=== PATIENT | male | born 1985 | race Caucasian/White ===

== ENCOUNTER 2017-07-27 18:44 | Emergency (ER) | payer BC ==
[~2017-07-27 18:44] MED LIST: ANTI NAUSEA MED PO; IBUP600T26 PO; LORTA5 PO; PROM1SUP12 PR; PROM25SU8 PO; ZYCAM PO
[2017-07-27 18:47] VITALS: BP 145/70; PULSE 62; RESP 14; TEMP 97.9; O2SAT 100
--- NOTE | 2017-07-27 19:20 | RADRPT ---
EXAM DATE/TIME: 07/27/2017 19:07 [facility] COMPARISON: No previous studies available for comparison. INDICATIONS : Cough, congestion MEDICAL HISTORY : None. SURGICAL HISTORY : None. ENCOUNTER: Initial ACUITY: 2 days PAIN SCORE: 4/10 LOCATION: Bilateral chest FINDINGS: PA and lateral views of the chest demonstrate the lungs to be symmetrically aerated without evidence of mass, infiltrate or effusion. The cardiomediastinal contours are unremarkable. Osseous structure s are intact. CONCLUSION: Normal 2 view chest x-ray. Daron oTrres MD on July 27, 2017 at 19:18 Board Certified Radiologist. This report was verified electronically.
[2017-07-27] MEDS ORDERED: SODIUM CHLORIDE 0.9% FLUSH 10 ML FLUSH IV FLUSH PRN (21:15)
[2017-07-27 21:50] LABS: AUTOMATED NEUTROPHIL # 12.9 TH/MM3 (1.8-7.7); BASOPHIL % 0.1 % (0.0-2.0); HEMATOCRIT 49.9 % (39.0-51.0); HEMOGLOBIN 17.3 GM/DL (13.0-17.0); LYMPH % 5.8 % (9.0-44.0); LYMPHOCYTE # 0.8 TH/MM3 (1.0-4.8); MEAN CELL VOLUME 92.1 FL (80.0-100.0); MEAN CORPUSCULAR HEMOGLOBIN 31.9 PG (27.0-34.0); MEAN CORPUSCULAR HGB CONC 34.6 % (32.0-36.0); MEAN PLATELET VOLUME 8.7 FL (7.0-11.0); MONO % 4.3 % (0.0-8.0); MONOCYTE # 0.6 TH/MM3 (0-0.9); NEUT % 89.8 % (16.0-70.0); PLATELET COUNT 292 TH/MM3 (150-450); RED BLOOD COUNT 5.42 MIL/MM3 (4.50-5.90); RED CELL DISTRIBUTION WIDTH 12.7 % (11.6-17.2); WHITE BLOOD COUNT 14.4 TH/MM3 (4.0-11.0)
[2017-07-27 22:00] LABS: ALBUMIN 4.5 GM/DL (3.4-5.0); AST (GOT) 14 U/L (15-37); BICARBONATE 30.1 MEQ/L (21.0-32.0); BLOOD UREA NITROGEN 19 MG/DL (7-18); CALCIUM 9.3 MG/DL (8.5-10.1); CHLORIDE 106 MEQ/L (98-107); CREATININE 1.09 MG/DL (0.60-1.30); GLOMERULAR FILTRATION RATE 78 ML/MIN (>89); GLUCOSE,RANDOM 117 MG/DL (74-106); SODIUM (NA) 141 MEQ/L (136-145)
[2017-07-27] MEDS ORDERED: SODIUM CHLOR 0.9% 1000 ML INJ 1,000 ML IV ONE (22:00)
[2017-07-27 22:03] LABS: ALKALINE PHOSPHATASE 80 U/L (45-117); ALT (GPT) 30 U/L (12-78); TOTAL BILIRUBIN ADULT 1.3 MG/DL (0.2-1.0); TOTAL PROTEIN 7.9 GM/DL (6.4-8.2)
[2017-07-27 22:05] VITALS: BP 140/68; PULSE 82; RESP 18; O2SAT 98
[2017-07-27 22:22] LABS: INTERNATIONAL NORMALIZED RATIO 1.1 RATIO; PROTHROMBIN TIME - PATIENT 10.8 SEC (9.8-11.6)
--- NOTE | 2017-07-27 22:33 | PD ---
HPI Chief Complaint: Cold / Flu Symptoms Time Seen by Provider: 20:47 Travel History International Travel<30 days: No Contact w/Intl Traveler<30days: No Traveled to known affect area: No History of Present Illness HPI Patient is a 32-year-old male presenting to the emergency department for evaluation of cold symptoms. Patient was sent from urgent care after he expressed to them that he was vomiting blood. Patient states that he had an episode of vomiting there and they saw blood and sent him here. Patient reports that the symptoms started last night, he states he was coughing, today he reports vomiting 4 times but denies any significant nausea. He does report that he was sweating a lot last night as well. He denies any headache, shortness of breath, chest pain, abdominal pain, fevers. Patient denies any dark or tarry like stools. He further denies any nausea. Symptom onset was fairly sudden, getting progressively worse throughout the last 24 hours. There are no alleviating factors. There are no exacerbating factors. PFSH Past Medical History Medical History: Denies Significant Hx Diminished Hearing: No Social History Alcohol Use: No Tobacco Use: No Substance Use: Yes (marijuana) Allergies-Medications (Allergen,Severity, Reaction): Coded Allergies: No Known Allergies (Verified Adverse Reaction, Unknown, 07/27/17) Reported Meds & Prescriptions Reported Meds & Active Scripts Active No Active Prescriptions or Reported Medications Review of Systems Except as stated in HPI: all other systems reviewed are Neg General / Constitutional: No: Fever HENT: No: Headaches Cardiovascular: No: Chest Pain or Discomfort Respiratory: Positive: Cough, Hemoptysis Gastrointestinal: Positive: Vomiting, No: Nausea, Abdominal Pain Physical Exam Narrative GENERAL: Well-developed, well-nourished, well-appearing male. Presenting in no acute distress. SKIN: Warm and dry. HEAD: Atraumatic. Normocephalic. EYES: Pupils equal and round. No scleral icterus. No injection or drainage. ENT: No nasal bleeding or discharge. Mucous membranes pink and moist. NECK: Trachea midline. No JVD. CARDIOVASCULAR: Regular rate and rhythm. RESPIRATORY: No accessory muscle use. Clear to auscultation. Breath sounds equal bilaterally. GASTROINTESTINAL: Abdomen soft, non-tender, nondistended. Hepatic and splenic margins not palpable. MUSCULOSKELETAL: Extremities without clubbing, cyanosis, or edema. No obvious deformities. NEUROLOGICAL: Awake and alert. No obvious cranial nerve deficits. Motor grossly within normal limits. Five out of 5 muscle strength in the arms and legs. Normal speech. PSYCHIATRIC: Appropriate mood and affect; insight and judgment normal. Data Data Last Documented VS Vital Signs Date Time Temp Pulse Resp B/P (MAP) Pulse Ox O2 Delivery O2 Flow Rate FiO2 07/27/17 18:47 97.9 62 14 145/70 (95) 100 Orders Orders Chest, Pa & Lat (07/27/17 ) Complete Blood Count With Diff (07/27/17 21:06) Comprehensive Metabolic Panel (07/27/17 21:06) Lipase (07/27/17 21:06) Prothrombin Time / Inr (Pt) (07/27/17 21:06) Act Partial Throm Time (Ptt) (07/27/17 21:06) Iv Access Insert/Monitor (07/27/17 21:06) Ecg Monitoring (07/27/17 21:06) Oximetry (07/27/17 21:06) Sodium Chloride 0.9% Flush (Ns Flush) (07/27/17 21:15) D-Dimer (07/27/17 21:06) Sodium Chlor 0.9% 1000 Ml Inj (Ns 1000 M (07/27/17 22:00) Labs Laboratory Tests Test 07/27/17 21:15 White Blood Count 14.4 TH/MM3 Red Blood Count 5.42 MIL/MM3 Hemoglobin 17.3 GM/DL Hematocrit 49.9 % Mean Corpuscular Volume 92.1 FL Mean Corpuscular Hemoglobin 31.9 PG Mean Corpuscular Hemoglobin Concent 34.6 % Red Cell Distribution Width 12.7 % Platelet Count 292 TH/MM3 Mean Platelet Volume 8.7 FL Neutrophils (%) (Auto) 89.8 % Lymphocytes (%) (Auto) 5.8 % Monocytes (%) (Auto) 4.3 % Eosinophils (%) (Auto) 0.0 % Basophils (%) (Auto) 0.1 % Neutrophils # (Auto) 12.9 TH/MM3 Lymphocytes # (Auto) 0.8 TH/MM3 Monocytes # (Auto) 0.6 TH/MM3 Eosinophils # (Auto) 0.0 TH/MM3 Basophils # (Auto) 0.0 TH/MM3 CBC Comment DIFF FINAL Differential Comment Prothrombin Time 10.8 SEC Prothromb Time International Ratio 1.1 RATIO Activated Partial Thromboplast Time 25.7 SEC D-Dimer Quantitative (PE/DVT) LESS THAN 0.19 MG/L FEU Blood Urea Nitrogen 19 MG/DL Creatinine 1.09 MG/DL Random Glucose 117 MG/DL Total Protein 7.9 GM/DL Albumin 4.5 GM/DL Calcium Level 9.3 MG/DL Alkaline Phosphatase 80 U/L Aspartate Amino Transf (AST/SGOT) 14 U/L Alanine Aminotransferase (ALT/SGPT) 30 U/L Total Bilirubin 1.3 MG/DL Sodium Level 141 MEQ/L Potassium Level 4.0 MEQ/L Chloride Level 106 MEQ/L Carbon Dioxide Level 30.1 MEQ/L Anion Gap 5 MEQ/L Estimat Glomerular Filtration Rate 78 ML/MIN Lipase 74 U/L MDM Medical Decision Making Medical Screen Exam Complete: Yes Emergency Medical Condition: Yes Interpretation(s) Last Impressions Chest X-Ray 07/27/17 0000 Signed Impressions: Service Date/Time: July 19:07 - CONCLUSION: Normal 2 view chest x-ray. Daron Torres MD Laboratory Tests Test 07/27/17 21:15 White Blood Count 14.4 TH/MM3 Red Blood Count 5.42 MIL/MM3 Hemoglobin 17.3 GM/DL Hematocrit 49.9 % Mean Corpuscular Volume 92.1 FL Mean Corpuscular Hemoglobin 31.9 PG Mean Corpuscular Hemoglobin Concent 34.6 % Red Cell Distribution Width 12.7 % Platelet Count 292 TH/MM3 Mean Platelet Volume 8.7 FL Neutrophils (%) (Auto) 89.8 % Lymphocytes (%) (Auto) 5.8 % Monocytes (%) (Auto) 4.3 % Eosinophils (%) (Auto) 0.0 % Basophils (%) (Auto) 0.1 % Neutrophils # (Auto) 12.9 TH/MM3 Lymphocytes # (Auto) 0.8 TH/MM3 Monocytes # (Auto) 0.6 TH/MM3 Eosinophils # (Auto) 0.0 TH/MM3 Basophils # (Auto) 0.0 TH/MM3 CBC Comment DIFF FINAL Differential Comment Prothrombin Time 10.8 SEC Prothromb Time International Ratio 1.1 RATIO Activated Partial Thromboplast Time 25.7 SEC D-Dimer Quantitative (PE/DVT) LESS THAN 0.19 MG/L FEU Blood Urea Nitrogen 19 MG/DL Creatinine 1.09 MG/DL Random Glucose 117 MG/DL Total Protein 7.9 GM/DL Albumin 4.5 GM/DL Calcium Level 9.3 MG/DL Alkaline Phosphatase 80 U/L Aspartate Amino Transf (AST/SGOT) 14 U/L Alanine Aminotransferase (ALT/SGPT) 30 U/L Total Bilirubin 1.3 MG/DL Sodium Level 141 MEQ/L Potassium Level 4.0 MEQ/L Chloride Level 106 MEQ/L Carbon Dioxide Level 30.1 MEQ/L Anion Gap 5 MEQ/L Estimat Glomerular Filtration Rate 78 ML/MIN Lipase 74 U/L Vital Signs Date Time Temp Pulse Resp B/P (MAP) Pulse Ox O2 Delivery O2 Flow Rate FiO2 07/27/17 18:47 97.9 62 14 145/70 (95) 100 Differential Diagnosis GI bleed versus viral syndrome versus gastroenteritis versus metabolic abnormality versus coagulopathy versus other Narrative Course Patient is a 32-year-old male that presented to the emergency department in essence to rule out a pulmonary embolism. Patient is very well-appearing, his vital signs are stable. Labs and imaging ordered and pending. Rectal exam is unremarkable, there was no blood noted in stool. CBC with white blood cell count 14.9 likely elevated secondary to vomiting Chemistry with no acute findings, coags are unremarkable, d-dimer is negative. Chest x-ray shows no acute disease. Patient will be discharged home, symptoms seem viral in nature, patient's vital signs are stable. He appears well, he is encouraged to follow-up with a primary doctor or return to the emergency department for any new or worsening symptoms. He is encouraged to maintain adequate fluid intake and continue symptom management. Patient verbalized understanding of instructions. Patient stable for discharge. HemaPrompt Point of Care Fecal Specimen Occult Blood: Negative Diagnosis Primary Impression: Viral syndrome Referrals: Primary Care Physician Patient Instructions: General Instructions, Viral Syndrome (DC) Additional Instructions: Follow-up with your primary doctor Continue symptom management Return to emergency department for any new or worsening symptoms Med/Other Pt SpecificInfo: Prescription(s) given Scripts Ondansetron Odt (Zofran Odt) 4 Mg Tab 4 MG SL Q6HR Y for Nausea/Vomiting, #10 TAB 0 Refills Prov: Sadaf Han 07/27/17 Benzonatate (Tessalon Perles) 100 Mg Cap 100 MG PO TID Y for COUGH, #15 CAP 0 Refills Prov: Sadaf Han 07/27/17 Disposition: 01 DISCHARGE HOME Condition: Stable Sadaf Han Jul 27, 2017 22:33
[2017-07-27 22:36] LABS: D-DIMER LESS THAN 0.19 MG/L FEU (0.00-0.50)
[2017-07-27] MEDS ORDERED: ZOFR4TAB3 SL (22:58)
[2017-07-27] MEDS ORDERED: BENZ100 PO (22:58)
== END 2017-07-28 01:11 | disposition home or self-care (01) ==
LOC: NEPD 18:44
DX: B34.9 Viral infection, unspecified (principal)
CPT/HCPCS: 71046; 80053; 83690; 85025; 85379; 85610; 85730; 99284; J7030

== ENCOUNTER 2017-10-09 06:51 | Observation (INO) | payer BC ==
[2017-10-09] VITALS (12 sets, daily range): BP systolic 110–167; BP diastolic 62–96; PULSE 59–89; RESP 14–18; TEMP 97.8–98.6; O2SAT 96–100
[~2017-10-09] VITALS: Ht 177.8 cm; Wt 82.5 kg
[~2017-10-09 06:51] MED LIST changes: -ANTI NAUSEA MED PO; +BENZ100 PO; -IBUP600T26 PO; -LORTA5 PO; -PROM1SUP12 PR; -PROM25SU8 PO; +ZOFR4TAB3 SL; -ZYCAM PO
[2017-10-09] MEDS ORDERED: SODIUM CHLORIDE 0.9% FLUSH 10 ML FLUSH IVF PRN (07:15)
[2017-10-09] MEDS ORDERED: LORazepam 2 MG/ML VIAL IVS PRN (07:15)
[2017-10-09 07:36] LABS: AUTOMATED NEUTROPHIL # 5.6 TH/MM3 (1.8-7.7); BASOPHIL # 0.1 TH/MM3 (0-0.2); BASOPHIL % 0.7 % (0.0-2.0); EOSINOPHIL # 0.1 TH/MM3 (0-0.4); EOSINOPHIL % 1.4 % (0.0-4.0); HEMATOCRIT 49.5 % (39.0-51.0); HEMOGLOBIN 16.8 GM/DL (13.0-17.0); LYMPH % 25.6 % (9.0-44.0); LYMPHOCYTE # 2.2 TH/MM3 (1.0-4.8); MEAN CELL VOLUME 92.2 FL (80.0-100.0); MEAN CORPUSCULAR HEMOGLOBIN 31.3 PG (27.0-34.0); MEAN PLATELET VOLUME 8.5 FL (7.0-11.0); MONO % 6.7 % (0.0-8.0); MONOCYTE # 0.6 TH/MM3 (0-0.9); NEUT % 65.6 % (16.0-70.0); PLATELET COUNT 269 TH/MM3 (150-450); RED BLOOD COUNT 5.37 MIL/MM3 (4.50-5.90); RED CELL DISTRIBUTION WIDTH 12.6 % (11.6-17.2); WHITE BLOOD COUNT 8.5 TH/MM3 (4.0-11.0)
[2017-10-09 07:45] LABS: AST (GOT) 18 U/L (15-37); BICARBONATE 24.6 MEQ/L (21.0-32.0); BLOOD UREA NITROGEN 15 MG/DL (7-18); CALCIUM 8.8 MG/DL (8.5-10.1); CHLORIDE 108 MEQ/L (98-107); GLOMERULAR FILTRATION RATE 64 ML/MIN (>89); GLUCOSE,RANDOM 156 MG/DL (74-106); SODIUM (NA) 142 MEQ/L (136-145)
[2017-10-09 07:49] LABS: ALKALINE PHOSPHATASE 68 U/L (45-117); ALT (GPT) 29 U/L (12-78); TOTAL BILIRUBIN ADULT 0.4 MG/DL (0.2-1.0); TOTAL PROTEIN 7.2 GM/DL (6.4-8.2)
--- NOTE | 2017-10-09 07:52 | PD ---
HPI . Seizure Chief Complaint: Seizure Time Seen by Provider: 07:05 Travel History International Travel<30 days: No Contact w/Intl Traveler<30days: No Traveled to known affect area: No History of Present Illness HPI Patient presents to us with a chief complaint of seizure. It was witnessed by his who is not here but is available by telephone and text messaging. The patient was in the bed when he had a grand mall type seizure. Duration was about 5 minutes. Onset was about 6 AM. It was followed by a short postictal phase. He did not suffer any injury as the result of the seizure such as shoulder injury, tongue laceration. There was no incontinence. He reports a previous similar event in July. He was seen at an OSH and had a negative workup. He was seen in follow-up by the [facility]. Apparently, there was no focus for the seizure and he was not started on any medications. He had done well since that time until this morning. He does state that he had a bad night last night. He states that he felt hot all night long. The cause of the seizures is unknown. The patient has no idea what could have set it off this morning. [facility] Past Medical History Diminished Hearing: No Social History Alcohol Use: No Tobacco Use: No Substance Use: Yes (marijuana) Allergies-Medications (Allergen,Severity, Reaction): Coded Allergies: No Known Allergies (Verified Adverse Reaction, Unknown, 10/09/17) Reported Meds & Prescriptions Reported Meds & Active Scripts Active Zofran Odt (Ondansetron Odt) 4 Mg Tab 4 Mg SL Q6HR PRN Tessalon Perles (Benzonatate) 100 Mg Cap 100 Mg PO TID PRN Review of Systems Except as stated in HPI: all other systems reviewed are Neg Physical Exam Narrative GENERAL: Currently awake and alert. SKIN: warm/dry. HEAD: Normocephalic. Atraumatic. EYES: Pupils equal and round. No scleral icterus. No injection or drainage. ENT: No nasal bleeding or discharge. Mucous membranes pink and moist. NECK: Trachea midline. Full range of motion without pain.. CARDIOVASCULAR: Regular rate and rhythm. RESPIRATORY: No accessory muscle use. Clear to auscultation. Breath sounds equal bilaterally. MUSCULOSKELETAL: No obvious deformities. NEUROLOGICAL: Awake and alert. No obvious cranial nerve deficits. Motor grossly within normal limits. [id number] exam is intact. Normal speech. PSYCHIATRIC: Appropriate mood and affect; insight and judgment normal. Data Data Last Documented VS Vital Signs Date Time Temp Pulse Resp B/P (MAP) Pulse Ox O2 Delivery O2 Flow Rate FiO2 10/09/17 07:15 67 17 113/69 (84) 97 Room Air 10/09/17 06:55 98.1 Orders Orders Complete Blood Count With Diff (10/09/17 07:05) Drug Screen, Random Urine (10/09/17 07:05) Ct Brain W/O Iv Contrast(Rout) (10/09/17 ) Blood Glucose (10/09/17 07:05) Ecg Monitoring (10/09/17 07:05) Iv Access Insert/Monitor (10/09/17 07:05) Oximetry (10/09/17 07:05) Comprehensive Metabolic Panel (10/09/17 07:05) Sodium Chloride 0.9% Flush (Ns Flush) (10/09/17 07:15) Lorazepam Inj (Ativan Inj) (10/09/17 07:15) Electrocardiogram (10/09/17 ) Levetiracetam Inj (Keppra Inj) (10/09/17 09:30) Labs Laboratory Tests Test 10/09/17 07:20 White Blood Count 8.5 TH/MM3 Red Blood Count 5.37 MIL/MM3 Hemoglobin 16.8 GM/DL Hematocrit 49.5 % Mean Corpuscular Volume 92.2 FL Mean Corpuscular Hemoglobin 31.3 PG Mean Corpuscular Hemoglobin Concent 34.0 % Red Cell Distribution Width 12.6 % Platelet Count 269 TH/MM3 Mean Platelet Volume 8.5 FL Neutrophils (%) (Auto) 65.6 % Lymphocytes (%) (Auto) 25.6 % Monocytes (%) (Auto) 6.7 % Eosinophils (%) (Auto) 1.4 % Basophils (%) (Auto) 0.7 % Neutrophils # (Auto) 5.6 TH/MM3 Lymphocytes # (Auto) 2.2 TH/MM3 Monocytes # (Auto) 0.6 TH/MM3 Eosinophils # (Auto) 0.1 TH/MM3 Basophils # (Auto) 0.1 TH/MM3 CBC Comment DIFF FINAL Differential Comment Blood Urea Nitrogen 15 MG/DL Creatinine 1.30 MG/DL Random Glucose 156 MG/DL Total Protein 7.2 GM/DL Albumin 4.0 GM/DL Calcium Level 8.8 MG/DL Alkaline Phosphatase 68 U/L Aspartate Amino Transf (AST/SGOT) 18 U/L Alanine Aminotransferase (ALT/SGPT) 29 U/L Total Bilirubin 0.4 MG/DL Sodium Level 142 MEQ/L Potassium Level 3.7 MEQ/L Chloride Level 108 MEQ/L Carbon Dioxide Level 24.6 MEQ/L Anion Gap 9 MEQ/L Estimat Glomerular Filtration Rate 64 ML/MIN MDM Medical Decision Making Medical Screen Exam Complete: Yes Emergency Medical Condition: Yes Interpretation(s) EKG showed a normal sinus rhythm with no acute ischemic change. Differential Diagnosis Differential diagnosis of seizure includes but is not limited to epilepsy, electrolyte abnormality, previous stroke, closed head injury Narrative Course Patient presents to us status post a seizure. This is his second seizure. Workup at that time was negative. This patient had a second seizure here in the emergency department. It was a generalized tonic-clonic seizure which lasted about 2-3 minutes. It was treated with Ativan. Because of the second seizure, I will load him with Keppra. CBC & BMP Diagram 10/09/17 07:20 Total Protein 7.2, Albumin 4.0, Calcium Level 8.8, Alkaline Phosphatase 68, Aspartate Amino Transf (AST/SGOT) 18, Alanine Aminotransferase (ALT/SGPT) 29, Total Bilirubin 0.[address] 10/09/17 0000 Signed Impressions: Service Date/Time: Monday, October 09, 2017 07:54 - CONCLUSION: No acute disease. Brice Callahan MD The patient will be admitted here for further evaluation and treatment. Physician Communication Physician Communication Dr. Carr Diagnosis Primary Impression: Seizure Admitting Information Admitting Physician Requests: Admit Condition: Stable Nikky Loco MD Oct 09, 2017 07:52
--- NOTE | 2017-10-09 08:38 | RADRPT ---
EXAM DATE/TIME: 10/09/2017 07:54 [facility] COMPARISON: No previous studies available for comparison. INDICATIONS : Seizure RADIATION DOSE: 38.23 CTDIvol (mGy) MEDICAL HISTORY : None SURGICAL HISTORY : None. ENCOUNTER: Initial ACUITY: 1 day PAIN SCALE: 1/10 LOCATION: cranial TECHNIQUE: Multiple contiguous axial images were obtained of the head. Using automated exposure control and adj ustment of the mA and/or kV according to patient size, radiation dose was kept as low as reasonably a chievable to obtain optimal diagnostic quality images. DICOM format image data is available electro nically for review and comparison. FINDINGS: CEREBRUM: The ventricles are normal for age. No evidence of midline shift, mass lesion, hemorrhage or acute in farction. No extra-axial fluid collections are seen. POSTERIOR FOSSA: The cerebellum and brainstem are intact. The 4th ventricle is midline. The cerebellopontine angle i s unremarkable. EXTRACRANIAL: The visualized portion of the orbits is intact. SKULL: The calvaria is intact. No evidence of skull fracture. CONCLUSION: No acute disease. Brice Callahan MD on October 09, 2017 at 8:35 Board Certified Radiologist. This report was verified electronically.
[2017-10-09] MEDS ORDERED: levETIRAcetam INJ 100 ML IV ONE (09:30)
[2017-10-09] MEDS ORDERED: GADODIAMIDE PF 287 MG/ML 20 ML VIAL (for RAD MRI) IV PUSH ONE (09:57)
--- NOTE | 2017-10-09 10:18 | HHI.HP ---
HPI Service Family Medicine Primary Care Physician No Primary Care Physician Admission Diagnosis sz Diagnoses: International Travel<30 Days: No Contact w/Intl Traveler<30days: No Known Affected Area: No History of Present Illness Patient is a 32 y/o M presenting w/seizure activity. One month ago, patient had seizure while sleeping. Was admitted to [facility] in [facility] and work up was performed, was negative. Followed up w/ [facility]. MRI, EEG was performed, work-up so far has showed no abnormalities. Does not take any medications. This morning, at 6 am, had seizure described as moving his whole body while in bed and grunting, in the middle of sleep. Total episode lasted 10 minutes but appeared to have 3-4 seizures in a row w/consciousness occurring in between, got up and "acted like he was drunk," was off balance. Did not fall. Went into the wrong bathroom that was under construction (house is being rennovated), directed him to the right place. described him a slurring speech, not understandable. No hallucinations, no urinary incontinence. Vomited 1x after seizure. Was fuzzy and confused afterwards. Since then, has vomited 4-5 times w/ appearance of clear liquid. Last meal was 6:30 pm yesterday evening. Had second seizure in the ED at around 9 am, lasted 2-3 minutes. Ativan was given, and activity ended. Patient has been sleepy since then. Drinks once every 6 months. Smokes weed every day, 2-3 joints/day. Last joint was yesterday. No recent fevers, no headaches, no weight loss, no appetite change, no sudden lifestyle changes, no issues w/sleep other than snoring. No family hx of seizures or cancers. (Rhina Carr MD R1) Review of Systems Constitutional: DENIES: Weight loss, Change in appetite Endocrine: DENIES: Polyuria Eyes: DENIES: Blurred vision, Vision loss Ears, nose, mouth, throat: DENIES: Throat pain, Running Nose Respiratory: DENIES: Cough, Shortness of breath Cardiovascular: DENIES: Chest pain Gastrointestinal: DENIES: Constipation, Diarrhea Genitourinary: DENIES: Urinary frequency, Urgency Musculoskeletal: DENIES: Joint pain, Muscle aches Integumentary: DENIES: Abnormal pigmentation Hematologic/lymphatic: DENIES: Bruising Immunologic/allergic: DENIES: Eczema Neurologic: COMPLAINS OF: Paresthesias (Fingers on left side, occasional ) Psychiatric: DENIES: Mood changes, Suicidal Ideation, Homicidal Ideation (Rhina Carr MD R1) Past Family Social History Past Medical History None Past Surgical History Surgery on finger 2 years ago (Rhina Carr MD R1) Allergies: Coded Allergies: No Known Allergies (Verified Adverse Reaction, Unknown, 10/09/17) Family History Mom: no seizure or cancer hx Dad: no seizure or cancer hx Social History Lives in a house in [place] w/ and daughter and dog No smoking or drinking No other drugs beside daily marijuana use, not known where he is obtaining it, possibly street (Rhina Carr MD R1) Physical Exam Vital Signs Vital Signs Date Time Temp Pulse Resp B/P (MAP) Pulse Ox O2 Delivery O2 Flow Rate FiO2 10/09/17 07:15 67 17 113/69 (84) 97 Room Air 10/09/17 07:15 97 Room Air 10/09/17 06:55 98.1 75 15 115/69 (84) 99 Physical Exam GENERAL: This is a well-nourished patient appearing very lethargic and sleepy lying in a pool of sweat. SKIN: Cool and dry. No new lesions, bruising. HEAD: Atraumatic. Normocephalic. No temporal or scalp tenderness. EYES: Pupils equal round and reactive. No scleral icterus. ENT: Nose without bleeding, purulent drainage or septal hematoma. Unable to open mouth for exam, but tongue has no lacerations, mucous membranes moist. NECK: Trachea midline. Supple, nontender, no meningeal signs. CARDIOVASCULAR: Regular rate and rhythm without murmurs, gallops, or rubs. RESPIRATORY: Clear to auscultation. Breath sounds equal bilaterally. No wheezes , rales, or rhonchi. GASTROINTESTINAL: Abdomen soft, non-tender, nondistended. No hepato-splenomegaly , or palpable masses. No guarding. MUSCULOSKELETAL: Extremities without clubbing, cyanosis, or edema. NEUROLOGICAL: Alert to self, year, and place. Patient unable to perform tasks for neuro exam. Opens eyes occasionally during exam. 4/5 muscle strength in all muscle groups. Patellar and triceps intact. Minimal speech. Laboratory Laboratory Tests Test 10/09/17 07:20 White Blood Count 8.5 Red Blood Count 5.37 Hemoglobin 16.8 Hematocrit 49.5 Mean Corpuscular Volume 92.2 Mean Corpuscular Hemoglobin 31.3 Mean Corpuscular Hemoglobin Concent 34.0 Red Cell Distribution Width 12.6 Platelet Count 269 Mean Platelet Volume 8.5 Neutrophils (%) (Auto) 65.6 Lymphocytes (%) (Auto) 25.6 Monocytes (%) (Auto) 6.7 Eosinophils (%) (Auto) 1.4 Basophils (%) (Auto) 0.7 Neutrophils # (Auto) 5.6 Lymphocytes # (Auto) 2.2 Monocytes # (Auto) 0.6 Eosinophils # (Auto) 0.1 Basophils # (Auto) 0.1 CBC Comment DIFF FINAL Differential Comment Blood Urea Nitrogen 15 Creatinine 1.30 Random Glucose 156 Total Protein 7.2 Albumin 4.0 Calcium Level 8.8 Alkaline Phosphatase 68 Aspartate Amino Transf (AST/SGOT) 18 Alanine Aminotransferase (ALT/SGPT) 29 Total Bilirubin 0.4 Sodium Level 142 Potassium Level 3.7 Chloride Level 108 Carbon Dioxide Level 24.6 Anion Gap 9 Estimat Glomerular Filtration Rate 64 (Rhina Carr MD R1) Result Diagram: 10/09/17 0720 10/09/17 0720 Imaging Last Impressions Head CT 10/09/17 0000 Signed Impressions: Service Date/Time: Monday, October 09, 2017 07:54 - CONCLUSION: No acute disease. Brice Callahan MD (Rhina Carr MD R1) Capbrocki VTE Risk Assessment Caprini VTE Risk Assessment: No/Low Risk (score <= 1) Caprini Risk Assessment Model Point Value = 1 Point Value = 2 Point Value = 3 Point Value = 5 Age 41-60 Minor surgery BMI > 25 kg/m2 Swollen legs Varicose veins or History of unexplained or recurrent spontaneous Oral contraceptives or hormone replacement Sepsis (< 1 month) Serious lung disease, including pneumonia (< 1 month) Abnormal pulmonary function Acute myocardial infarction Congestive heart failure (< 1 month) History of inflammatory bowel disease Medical patient at bed rest Age 61-74 Arthroscopic surgery Major open surgery (> 45 min) Laparoscopic surgery (> 45 min) Malignancy Confined to bed (> 72 hours) Immobilizing plaster cast Central venous access Age >= 75 History of VTE Family history of VTE Factor V Leiden Prothrombin [id number] Lupus anticoagulant Anticardiolipin antibodies Elevated serum homocysteine Heparin-induced thrombocytopenia Other congenital or acquired thrombophilia Stroke (< 1 month) Elective arthroplasty Hip, pelvis, or leg fracture Acute spinal cord injury (< 1 month) Prophylaxis Regimen Total Risk Factor Score Risk Level Prophylaxis Regimen 0-1 Low Early ambulation 2 Moderate Order ONE of the following: *Sequential Compression Device (SCD) *Heparin 5000 units SQ BID 3-4 Higher Order ONE of the following medications: *Heparin 5000 units SQ TID *Enoxaparin/Lovenox 40 mg SQ daily (WT < 150 kg, CrCl > 30 mL/min) *Enoxaparin/Lovenox 30 mg SQ daily (WT < 150 kg, CrCl > 10-29 mL/min) *Enoxaparin/Lovenox 30 mg SQ BID (WT < 150 kg, CrCl > 30 mL/min) AND/OR *Sequential Compression Device (SCD) 5 or more Highest Order ONE of the following medications: *Heparin 5000 units SQ TID (Preferred with Epidurals) *Enoxaparin/Lovenox 40 mg SQ daily (WT < 150 kg, CrCl > 30 mL/min) *Enoxaparin/Lovenox 30 mg SQ daily (WT < 150 kg, CrCl > 10-29 mL/min) *Enoxaparin/Lovenox 30 mg SQ BID (WT < 150 kg, CrCl > 30 mL/min) AND *Sequential Compression Device (SCD) (Rhina Carr MD R1) Assessment and Plan Assessment and Plan 32 y/o M admitted for observation following seizure activity. Patient is currently stable and post-ictal. Will monitor overnight, continue Keppra ( started in the ED), and consult neurology. Code Status FULL (Rhina Carr MD R1) Attending Attestation Patient seen and examined. Discussed with Dr. Carr. Agree with physical findings , assessment and plan as documented. (Prevatte,Thor Chappell Jr., MD) Problem List: (1) Seizure ICD Codes: R56.9 - Unspecified convulsions Status: Acute Plan: Has had previous work-ups involving MRI and EEG Follows with neurology outpatient, not taking medication Neuro consult Keppra 500 BID Ativan 2 mg IV q15 min PRN for seizure activity, max 2 doses ETOH level and UDS Mg level, TSH level Bed rest ECG pending NPO Seizure and fall precautions cardio monitor (2) FEN Plan: Fluid: None Electrolytes: not indicated Nutrition: Diet may be started after clinical improvement. Recommend PO intake after no seizure activity for 12 hrs (Rhina Carr MD R1) Physician Certification 2 Midnight Certification Type: Continued Stay Order for Inpatient Services The services are ordered in accordance with Medicare regulations or non- Medicare payer requirements, as applicable. In the case of services not specified as inpatient-only, they are appropriately provided as inpatient services in accordance with the 2-midnight benchmark. Estimated LOS (days): 2 2 days is the estimated time the patient will need to remain in the hospital, assuming treatment plan goals are met and no additional complications. Post-Hospital Plan: Home (Rhina Carr MD R1) Rhina Carr MD R1 Oct 09, 2017 10:18 Thor Meadows Jr., MD Oct 09, 2017 21:08
[2017-10-09] MEDS ORDERED: SODIUM CHLORIDE 0.9% FLUSH 10 ML FLUSH IV FLUSH PRN (10:30)
[2017-10-09] MEDS ORDERED: MAGNESIUM HYDROXIDE SUSP 30 ML CUP PO PRN (10:30)
[2017-10-09] MEDS ORDERED: LORazepam 2 MG/ML VIAL IV PUSH PRN (10:30)
[2017-10-09] MEDS ORDERED: IBUPROFEN 600 MG TAB PO PRN (10:30)
[2017-10-09] MEDS ORDERED: SENNOSIDES 8.6 MG TAB PO PRN (10:30)
[2017-10-09] MEDS ORDERED: NALOXONE HCL 0.4 MG/ML AMP IV PUSH PRN (10:30)
[2017-10-09] MEDS ORDERED: ONDANSETRON ODT 4 MG TAB PO PRN (18:00)
--- NOTE | 2017-10-09 18:07 | MB ---
cc: Mohsen Liriano MD, PhD DATE: 10/09/2017 REASON FOR CONSULTATION: Recurrent seizure. HISTORY OF PRESENT ILLNESS: Mr. Stewart is a 32-year-old man who, yesterday, had a generalized seizure in the morning. His noted that he was unresponsive with generalized jerking activity, afterwards was somnolent. He was brought to the emergency room, had a second episode here in the ER. Had his first episode last July. MRI, EEG were negative. He was not placed on any seizure medications. PAST MEDICAL HISTORY: Otherwise unremarkable. ALLERGIES: NONE KNOWN. MEDICATIONS AT HOME: NONE. SOCIAL HISTORY: Denies alcohol use. He does use marijuana daily. No other drug abuse. NEUROLOGICAL EXAMINATION: VITAL SIGNS: His blood pressure is 110/62, pulse 59, respiratory rate is 14, temperature 97 degrees. HIGHER CORTICAL FUNCTIONS: Intact. CRANIAL NERVES: Normal. MOTOR: No focal deficit noted. DIAGNOSTIC DATA: CT of the brain is normal. LABORATORY DATA: White count 8500, hemoglobin 16.8, hematocrit 49.8%, platelet count 269,000. Sodium 142, potassium 3.7, chloride 108, CO2 of 24.6, BUN is 15, creatinine 1.3, GFR 54, glucose 156, AST of 18, ALT is 29. TSH 1.62. Alcohol less than 3. IMPRESSION: Recurrent generalized seizure. RECOMMENDATION: We will repeat the MRI of the brain. Also check EEG. We will start the patient on Keppra. He should not drive for at least 6 months being seizure free. Mohsen Liriano MD, PhD PENNY/SB , 04:15 PM , 06:06 PM
[2017-10-09] MEDS: levETIRAcetam 500 MG TAB PO SCH (21:15)
[2017-10-09] MEDS: SODIUM CHLORIDE 0.9% FLUSH 10 ML FLUSH IV FLUSH SCH (21:16)
[2017-10-09] MEDS ORDERED: ONDANSETRON HCL 4 MG/2 ML VIAL IV PUSH PRN (22:00)
[2017-10-10 00:01] VITALS: PULSE 65
--- NOTE | 2017-10-10 00:03 | EKG ---
Date Performed: 10/09/2017 Time Performed: 07:18:13 PTAGE: 32 years EKG: SINUS BRADYCARDIA BORDERLINE ECG NO PREVIOUS TRACING DOCTOR: Damián Hernandez Interpretating Date/Time 10/10/2017 00:02:37
[2017-10-10 04:02] VITALS: PULSE 63
[2017-10-10 04:16] VITALS: BP 108/62; PULSE 62; RESP 18; TEMP 98.3; O2SAT 97
[2017-10-10 07:19] LABS: ALT (GPT) 26 U/L (12-78)
[2017-10-10 07:21] LABS: ALKALINE PHOSPHATASE 68 U/L (45-117); TOTAL BILIRUBIN ADULT 0.9 MG/DL (0.2-1.0); TOTAL PROTEIN 6.9 GM/DL (6.4-8.2)
[2017-10-10 07:24] LABS: ALBUMIN 3.6 GM/DL (3.4-5.0); AST (GOT) 23 U/L (15-37); BICARBONATE 22.1 MEQ/L (21.0-32.0); BLOOD UREA NITROGEN 14 MG/DL (7-18); CALCIUM 8.8 MG/DL (8.5-10.1); CHLORIDE 110 MEQ/L (98-107); CREATININE 1.06 MG/DL (0.60-1.30); GLOMERULAR FILTRATION RATE 80 ML/MIN (>89); GLUCOSE,RANDOM 81 MG/DL (74-106); SODIUM (NA) 141 MEQ/L (136-145)
[2017-10-10] MEDS: SODIUM CHLORIDE 0.9% FLUSH 10 ML FLUSH IV FLUSH SCH (07:32)
[2017-10-10] MEDS: levETIRAcetam 500 MG TAB PO SCH (07:32)
[2017-10-10 07:47] VITALS: BP 118/78; PULSE 74; RESP 18; TEMP 97.6; O2SAT 95
[2017-10-10] MEDS ORDERED: SODIUM CHLOR 0.9% 1000 ML INJ 1,000 ML IV SCH (08:00)
[2017-10-10] MEDS ORDERED: SODIUM CHLOR 0.9% 1000 ML INJ 1,000 ML IV ONE (09:00)
[2017-10-10] MEDS ORDERED: levETIRAcetam 500 MG TAB PO SCH (09:00)
--- NOTE | 2017-10-10 09:14 | RADRPT ---
EXAM DATE/TIME: 10/10/2017 08:26 [place] COMPARISON: CT BRAIN W/O CONTRAST, October 09, 2017, 7:54. INDICATIONS : Seizures. CONTRAST: 17 cc Omniscan (gadodiamide) IV MEDICAL HISTORY : Seizures. SURGICAL HISTORY : Left ring finger sx. ENCOUNTER: Initial ACUITY: 1 day PAIN SCORE: 3/10 LOCATION: Bilateral cranial TECHNIQUE: Multiplanar, multisequence MRI of the brain was performed both prior to and following the administrat ion of paramagnetic contrast. FINDINGS: CEREBRUM: The ventricles are normal for age. No evidence of midline shift, mass lesion, hemorrhage or acute in farction. No extraaxial fluid collections are seen. The pituitary gland and suprasellar cistern are normal in configuration. WHITE MATTER: No significant signal abnormalities are seen in the white matter. POSTERIOR FOSSA: The cerebellum and brainstem are intact. The 4th ventricle is midline. The cerebellopontine angle is unremarkable. The cerebellar tonsils are normal in position. DIFFUSION IMAGING: No focal areas of restricted diffusion are seen. No evidence of acute infarction. EXTRACRANIAL: The visualized portions of the orbits and paranasal sinuses are unremarkable. POST-CONTRAST: No abnormal areas of parenchymal or dural enhancement. No evidence of blood-brain barrier breakdown. CONCLUSION: Brain MRI within normal limits. Fred Cabral MD on October 10, 2017 at 9:07 Board Certified Radiologist. This report was verified electronically.
--- NOTE | 2017-10-10 10:32 | HHI.FPPN ---
Subjective Remarks Vitals were stable overnight. Patient states he had no problems overnight, other than nausea. Had nausea yesterday evening and unsteady gait pattern was noted yesterday. Patient required 1 person assist and then standby. Due to his extreme nausea, MRI was delayed for this morning. Patient was placed on PRN Zofran last night, took it once around 10 PM. No abnormalities were noted on cardiac telemetry. Patient states that his nausea is much improved since yesterday, states that he only vomited once this morning. Was able to take 10 mL's of liquid this morning. No other problems or complaints. No vision changes. Patient states that he feels well. Asked about his marijuana use this morning. Patient states that he has been smoking daily for 15 years, is hesitant to give up habit. Objective Vitals Vital Signs Date Time Temp Pulse Resp B/P (MAP) Pulse Ox O2 Delivery O2 Flow Rate FiO2 10/10/17 07:47 97.6 74 18 118/78 (91) 95 10/10/17 04:16 98.3 62 18 108/62 (77) 97 10/10/17 04:02 63 10/10/17 00:01 65 10/09/17 23:55 98.2 67 18 111/68 (82) 96 10/09/17 21:48 59 10/09/17 20:26 96 21 10/09/17 19:22 98.4 72 18 129/64 (85) 96 10/09/17 17:40 98.1 60 16 167/96 (119) 98 10/09/17 16:29 98.6 72 16 132/62 (85) 96 10/09/17 15:35 60 10/09/17 12:54 97.8 59 14 110/62 (78) 96 10/09/17 12:23 89 16 138/72 (94) 100 Room Air 10/09/17 10:10 88 17 117/76 (90) 100 Room Air I/O 10/09/17 10/09/17 10/09/17 10/10/17 10/10/17 10/10/17 07:00 15:00 23:00 07:00 15:00 23:00 Intake Total 100 ml 350 ml 10 ml Balance 100 ml 350 ml 10 ml Intake Oral 350 ml 10 ml IV Total 100 ml # Voids 1 Result Diagram: 10/09/17 0720 10/10/17 0540 Objective Remarks O. CONSTITUTIONAL/GEN: normally nourished, in NAD. EYES: conjunctiva normal, EOMI. ENT: Mucous membranes slightly dry. NECK: Supple, no pain. LUNGS: clear A-P, respiratory effort is normal. CARDIOVASCULAR: RR without murmur or gallop. No significant edema. GI/ABD: soft without masses, without organomegaly. NEURO: No focal deficits. Normal range of motion. 5/5 motor strength in all extremities. Sensation intact bilaterally. Patellar and biceps reflexes intact. Hand-eye coordination normal. SKIN: color normal PSYCH/MENTAL STATUS: Alert, good judgement and insight. A/P Assessment and Plan 32 y/o M admitted for observation following seizure activity. Patient is currently stable and post-ictal. Monitored overnight and on Keppra (started in the ED). Neurology consulted. Discharge Planning Likely today; pending EEG results, neuro recommendations, and PT assessment. Problem List: (1) Seizure ICD Codes: R56.9 - Unspecified convulsions Status: Acute Plan: Has had previous work-ups involving MRI and EEG Follows with neurology outpatient, not taking medication Electrolytes within normal limits, EKG without abnormalities No seizure activity for more than 12 hours since admission Unsteady gait noted post-ictally and overnight UDS positive for cannabinoids Neuro consulted, appreciate recommendations Continue Keppra 500 BID Ativan 2 mg IV q15 min PRN for seizure activity, max 2 doses Seizure and fall precautions MRI shows no abnormalities EEG report pending this AM Order PT assessment for DC Patient counseled on cessation of marijuana use; it was explained to patient that cannabis or drug use of any kind carries a risk of inducing seizures and should be avoided. Patient needs to avoid driving, swimming, or operating heavy machinery for at least 6 months. Avoid sleep deprivation. Important to follow-up with PCP neuro (2) Nausea & vomiting ICD Codes: R11.2 - Nausea with vomiting, unspecified Status: Acute Plan: Nausea and vomiting since yesterday. More than 5-6 times of vomiting yesterday, 1 this morning Possibly secondary to cannabis hyperemesis syndrome versus gastroenteritis IV Zofran 4 mg every 6 hours as needed 1 L normal saline bolus 1 this a.m. (3) Marijuana smoker, continuous ICD Codes: F12.90 - Cannabis use, unspecified, uncomplicated Plan: Patient counseled on avoiding marijuana use (4) FEN Plan: Fluid: 1 L normal saline bolus 1 provided to ensure patient is adequately hydrated (s/p significant diaphoresis, vomiting, and little PO intake ) Electrolytes: not indicated Nutrition: Regular diet Problem Qualifiers (1) Nausea & vomiting: Qualified Codes: R11.2 - Nausea with vomiting, unspecified Rhina Carr MD R1 Oct 10, 2017 10:32
[2017-10-10] MEDS ORDERED: LEVE500 PO (11:43)
--- NOTE | 2017-10-10 11:45 | HHI.DCPOC ---
Discharge Care Plan Diagnosis: (1) Seizure Goals to Promote Your Health * To prevent worsening of your condition and complications * To maintain your health at the optimal level Directions to Meet Your Goals Take your medications as prescribed Follow your dietary instruction Follow activity as directed: AVOID DRIVING, SWIMMING, OR OPERATING HEAVY MACHINERY FOR AT LEAST 6 MONTHS. AVOID SLEEP DEPRIVATION. Keep your appointments as scheduled: FOLLOW UP WITH YOUR PRIMARY CARE PROVIDER AND NEUROLOGIST. Take your immunizations and boosters as scheduled If your symptoms worsen call your PCP, if no PCP go to Urgent Care Center or Emergency Room Smoking is Dangerous to Your Health. Avoid second hand smoke Call the 24-hour hour crisis hotline for domestic abuse at Rhina Carr MD R1 Oct 10, 2017 11:45
[2017-10-10] MEDS ORDERED: ZOFR4TAB PO (11:46)
[2017-10-10 12:13] VITALS: BP 124/72; PULSE 61; RESP 18; TEMP 98; O2SAT 96
--- NOTE | 2017-10-10 15:26 | MG ---
cc: Mohsen Liriano MD, PhD TEST NUMBER: [id number] TECHNIQUE: A 17-channel EEG. DESCRIPTION: The background rhythm reveals a symmetrical alpha rhythm with a frequency of 8-9 Hz. Amplitude is about 20-30 microvolts. Some muscle artifact is identified. During drowsiness, there is mild slowing in the theta range at 6 Hz. No lateralizing features are identified and no epileptiform features are identified. Photic stimulation results in a normal driving response. INTERPRETATION: Normal EEG. Mohsen Liriano MD, PhD PENNY/KATINA , 03:11 PM , 03:25 PM
== END 2017-10-10 13:48 | disposition home or self-care (01) ==
LOC: NEPC 06:51 → NEDA 09:56 → INTOOBSV 09:56 → NEPGCP 12:42
PROVIDERS: ADMIT Family Medicine; ATTEND Family Medicine
DX: R56.9 Unspecified convulsions (principal); F12.90 Cannabis use, unspecified, uncomplicated; F17.200 Nicotine dependence, unspecified, uncomplicated
CPT/HCPCS: 70450; 70553; 80053; 80307; 83735; 84443; 85025; 93005; 95819; 96374; 96375; 97161; 99285; A9579; G0378; G8987; G8988; J1953; J2060; J2405; J7030